=== PATIENT | male | born 1960 | race Caucasian/White ===

== ENCOUNTER 2020-07-31 17:31 | Emergency (ER) | payer BC, OTHER ==
[2020-07-31 19:10] LABS: HEMOGLOBIN 15.2 gm/dl (14.0-17.5); RED BLOOD COUNT 4.82 M/UL (4.20-5.50); WHITE BLOOD COUNT 11.9 K/UL (4.5-11.0)
[2020-07-31 19:36] LABS: BUN/CREATININE RATIO 7 (0-10)
[2020-07-31] MEDS ORDERED: PROTONIX40 MG PO (21:11)
== END 2020-07-31 21:17 | disposition home or self-care (01) ==
LOC: ER1 17:31
PROVIDERS: Preventive Medicine Occupational Medicine
DX: K29.70 Gastritis, unspecified, without bleeding (principal); J44.9 Chronic obstructive pulmonary disease, unspecified; I10 Essential (primary) hypertension; F17.210 Nicotine dependence, cigarettes, uncomplicated; Z88.0 Allergy status to penicillin
CPT/HCPCS: 71260; 80053; 81001; 83690; 85025; 85652; 86140; 87086; 96374; 96375; 99284; J1170; J2405; J7030; Q9967

== ENCOUNTER → 2020-08-19 | Outpatient (CLI) | payer OTHER ==
[~2020-08-19] MED LIST: PROTONIX40 MG PO
== END ==
LOC: ECHO 11:42 → NM 13:00
DX: Z01.810 Encounter for preprocedural cardiovascular examination (principal); R94.31 Abnormal electrocardiogram [ECG] [EKG]; I10 Essential (primary) hypertension; R01.1 Cardiac murmur, unspecified; I73.9 Peripheral vascular disease, unspecified
CPT/HCPCS: ECHO; 78452; 93017; 93306; A9502; J2785

== ENCOUNTER → 2020-12-05 | Outpatient (CLI) | payer OTHER | LOC: CT 10:19 | DX: I73.9 Peripheral vascular disease, unspecified (principal); Z95.828 Presence of other vascular implants and grafts; I74.09 Other arterial embolism and thrombosis of abdominal aorta | CPT/HCPCS: 36415; 75635; 82565; 84520; Q9967 ==

== ENCOUNTER 2021-01-06 16:55 | Emergency (ER) | payer OTHER ==
[2021-01-06 18:28] LABS: HEMOGLOBIN 14.5 gm/dl (14.0-17.5); RED BLOOD COUNT 4.82 M/UL (4.20-5.50); WHITE BLOOD COUNT 13.3 K/UL (4.5-11.0)
[2021-01-06 18:45] LABS: BUN/CREATININE RATIO 11 (0-10)
[2021-01-06] MEDS ORDERED: ZOFRAN4 MG PO (22:07)
[2021-01-20] MEDS ORDERED: PROAIR DIGIHAL90 MCG INH (08:45)
[2021-01-20] MEDS ORDERED: TENORMIN 25 MG25 MG PO (08:46)
[2021-01-20] MEDS ORDERED: ELAVIL 50 MG TA50 MG PO (08:46)
[2021-01-20] MEDS ORDERED: ASPIRIN CHEWABL81 MG PO (08:46)
[2021-01-20] MEDS ORDERED: ATROVENT-HFA12.9 GM INH (08:47)
[2021-01-20] MEDS ORDERED: BACLOFEN10 MG PO (08:47)
[2021-01-20] MEDS ORDERED: LIPITOR40 MG PO (08:47)
[2021-01-20] MEDS ORDERED: BREZTRI AEROS10.7 GM INH (08:48)
[2021-01-20] MEDS ORDERED: TESSALON PERLE100 MG PO (08:48)
[2021-01-20] MEDS ORDERED: PLAVIX 75 MG TA75 MG PO (08:49)
[2021-01-20] MEDS ORDERED: BUSPIRONE HCL15 MG PO (08:49)
[2021-01-20] MEDS ORDERED: DALIRESP500 MCG PO (08:50)
[2021-01-20] MEDS ORDERED: PROTONIX40 MG PO (08:50)
[2021-01-20] MEDS ORDERED: HYDROCODONE-AC1 EAC1 PO (08:50)
[2021-01-20] MEDS ORDERED: LYRICA100 MG PO (08:51)
[2021-01-20] MEDS ORDERED: SILDENAFIL20 MG PO (08:51)
[2021-01-20] MEDS ORDERED: PEPCID20 MG PO (08:51)
[2021-01-20] MEDS ORDERED: DESYREL 50 MG T50 MG PO (08:52)
[2021-01-20] MEDS ORDERED: ZANAFLEX4 M1 PO (08:52)
[2021-01-20] MEDS ORDERED: CARAFATE1 GM PO (08:52)
== END 2021-01-06 22:18 | disposition home or self-care (01) ==
LOC: ER1 16:55
PROVIDERS: Emergency Medicine
DX: R10.12 Left upper quadrant pain (principal); E78.5 Hyperlipidemia, unspecified; I73.9 Peripheral vascular disease, unspecified; I10 Essential (primary) hypertension; J44.9 Chronic obstructive pulmonary disease, unspecified; I25.2 Old myocardial infarction; F17.200 Nicotine dependence, unspecified, uncomplicated; Z88.0 Allergy status to penicillin
CPT/HCPCS: 80053; 81001; 83605; 83690; 85025; 94664; 96374; 96375; 96376; 99284; J2270; J2405; J7030; Q9967

== ENCOUNTER → 2021-01-20 | Day surgery (SDC) | payer OTHER ==
[~2021-01-20] MED LIST changes: +ASPIRIN CHEWABL81 MG PO; +ATROVENT-HFA12.9 GM INH; +BACLOFEN10 MG PO; +BREZTRI AEROS10.7 GM INH; +BUSPIRONE HCL15 MG PO; +CARAFATE1 GM PO; +DALIRESP500 MCG PO; +DESYREL 50 MG T50 MG PO; +ELAVIL 50 MG TA50 MG PO; +HYDROCODONE-AC1 EAC1 PO; +LIPITOR40 MG PO; +LYRICA100 MG PO; +PEPCID20 MG PO; +PLAVIX 75 MG TA75 MG PO; +PROAIR DIGIHAL90 MCG INH; +SILDENAFIL20 MG PO; +TENORMIN 25 MG25 MG PO; +TESSALON PERLE100 MG PO; +ZANAFLEX4 M1 PO; +ZOFRAN4 MG PO
== END | disposition home or self-care (01) ==
LOC: CATH 12-29 08:00
DX: I51.7 Cardiomegaly (principal); I34.0 Nonrheumatic mitral (valve) insufficiency; Z88.0 Allergy status to penicillin; Z79.82 Long term (current) use of aspirin; Z79.899 Other long term (current) drug therapy; Z79.02 Long term (current) use of antithrombotics/antiplatelets; Z79.891 Long term (current) use of opiate analgesic
CPT/HCPCS: 93005; 93312; 93320; J2250; J2310; J3010; J7050

== ENCOUNTER → 2022-01-01 | Outpatient (CLI) | payer OTHER | LOC: KOH-I 09:20 | DX: M96.0 Pseudarthrosis after fusion or arthrodesis (principal); M47.26 Other spondylosis with radiculopathy, lumbar region | CPT/HCPCS: 72131 ==